=== PATIENT | male | born 1955 | race Hispanic/Latino ===

== ENCOUNTER 2021-06-11 11:40 | Outpatient (CLI) | payer MEDICARE | END 2021-06-11 11:41 | disposition home or self-care (01) | LOC: SCSRAD 11:40 | PROVIDERS: ATTEND Nurse Practitioner Family | DX: S29.9XXD Unspecified injury of thorax, subsequent encounter (principal) ==

== ENCOUNTER 2023-08-03 09:24 | Outpatient (CLI) | payer MEDICARE | END 2023-08-03 09:25 | disposition home or self-care (01) | LOC: BICMAMMO 09:24 | PROVIDERS: ATTEND Internal Medicine Rheumatology | DX: M81.0 Age-related osteoporosis without current pathological fracture (principal) | CPT/HCPCS: 77080 ==